=== PATIENT | female | born 1960 | race African-American/Black ===

== ENCOUNTER 2019-02-21 08:16 | Emergency (ER) | payer OTHER, SELFPAY ==
[2019-02-21] MEDS ORDERED: diphenhydrAMINE 50 MG/ML VIAL ONE (09:07)
--- NOTE | 2019-02-21 09:10 | CT ---
CT head noncontrast HISTORY: Headache. FINDINGS: No comparison. There is no evidence of acute intracranial hemorrhage or infarct. Ventricles appear normal in size, shape and position. Mild chronic ischemic small vessel disease within the periventricular white matter of each cerebral hemisphere. The lobular 1.1 cm densely calcified lesion arising from the left frontal midline inner calvarium may represent a meningioma or osteoma and is of doubtful clinical significance. IMPRESSION: No acute intracranial abnormalities are demonstrated.
[2019-02-21] MEDS ORDERED: Metoclopramide HCl 10 MG/2 ML VIAL ONE (09:30)
[2019-02-21] MEDS ORDERED: Mag-Al Plus 1200 MG/1200 MG/120 MG/30 ML UDCUP ONE (09:30)
[2019-02-21] MEDS ORDERED: Famotidine In NaCl 20 mg/50 ml Premix Bag ONE (09:30)
[2019-02-21] MEDS ORDERED: methylPREDNISolone Sod Succ/PF 125 MG/2 ML VIAL ONE (09:30)
[2019-02-21] MEDS ORDERED: Lidocaine 2% Jelly 5 ML TUBE ONE (09:30)
--- NOTE | 2019-02-21 09:30 | RAD ---
CHEST 2 VIEWS: Date: 02/21/19 HISTORY: Chest pain. FINDINGS: Heart size is within normal limits. Lungs are clear of acute process. No confluent pneumonia, overt e desi, or pleural effusion. Multilevel bridging thoracic spine disc osteophytosis. IMPRESSION: No significant acute intrathoracic disease. Thoracic spine spondylosis. Atherosclerosis of aorta. POS: C
[2019-02-21] MEDS ORDERED: Lidocaine Viscous Sol 2% 15 ml UD Cup ONE (09:31)
[2019-02-21 09:38] LABS: #Basophils 0.1 thou/uL (0.0-0.2); #Eosinphils 0.1 thou/uL (0.0-0.7); #Lymphocytes 2.1 thou/uL (1.20-3.40); #Monocytes 0.4 thou/uL (0.11-0.59); #Neutrophils 2.4 thou/uL (1.40-6.50); %Basophils 1.1 % (0.0-1.0); %Eosinophils 2.2 % (0.0-10.0); %Lymphocytes 41.4 % (21.0-51.0); %Monocytes 7.6 % (0.0-10.0); %Neutrophils 47.7 % (42.0-75.0); Hemoglobin 13.6 g/dL (12.0-16.0); Mean Corpuscular HGB CONC 31.4 g/dL (32.0-36.0); Mean Corpuscular Hemoglobin 30.5 pg (27.0-31.0); Mean Corpuscular Volume 97.4 fL (78.0-98.0); Mean Platelet Volume 8.4 fL (7.4-10.4); Platelet Count 142 thou/uL (130-400); RBC Distribution Width 12.8 % (11.5-14.5); Red Blood Cell (RBC) Count 4.46 mill/uL (4.20-5.40); White Blood Cell (WBC) Count 5.1 thou/uL (4.8-10.8)
[2019-02-21 09:57] LABS: ALT (SGPT) 12 U/L (8-55); AST (SGOT) 12 U/L (5-34); Albumin 3.8 g/dL (3.5-5.0); Alkaline Phosphatase 127 U/L (40-150); Anion Gap 11 mmol/L (10-20); BUN (Urea Nitrogen) 11 mg/dL (9.8-20.1); Bilirubin, Total 0.4 mg/dL (0.2-1.2); Calc. Creatinine Clearance 0 mL/min (70-130); Calcium 9.8 mg/dL (7.8-10.44); Carbon Dioxide 27 mmol/L (22-29); Chloride 107 mmol/L (98-107); Estimated GFR-MDRD 66; Globulin 3.6 g/dL (2.4-3.5); Glucose 110 mg/dL (70-105); Potassium 3.7 mmol/L (3.5-5.1); Protein, Total 7.4 g/dL (6.0-8.3); Sodium 141 mmol/L (136-145)
[2019-02-21 10:00] LABS: Bilirubin Negative (Negative); Blood, Urine Negative (Negative); Clarity Clear (Clear); Glucose, Urine (Dipstick) Negative (Negative); Leukocyte Negative (Negative); Nitrite Negative (Negative); Protein, Urine (Dipstick) Negative (Neg-Trace); Specific Gravity, Urine 1.015 (1.005-1.030); Urobilinogen 0.2 mg/dL (0.2-1.0)
== END 2019-02-21 10:35 | disposition home or self-care (01) ==
LOC: MADERS 08:16
DX: R51 Headache (principal); R10.9 Unspecified abdominal pain; R11.2 Nausea with vomiting, unspecified
CPT/HCPCS: 70450; 71046; 80053; 81003; 83605; 83880; 84484; 85025; 93005; 96374; 96375; J1200; J2765; J2930